=== PATIENT | male | born 1940 | race Caucasian/White ===

== ENCOUNTER 2018-04-10 04:59 | Inpatient (IN) | payer MEDICARE ==
[~2018-04-10] VITALS: Ht 180.3 cm; Wt 88.5 kg
[~2018-04-10 04:59] MED LIST: CIPR500T87 PO; EMPA10TA PEG; ENOX80SY4 SQ; LIRA0.6P SQ; METF10002 PO; METF500T27 PO; METR500T PO
[2018-04-10] MEDS ORDERED: SODIUM CHLORIDE 0.9% 1,000 ML IV ONE (05:21)
[2018-04-10] MEDS ORDERED: SODIUM CHLORIDE 0.9% 1,000ML IVBOLUS ONE (05:30)
[2018-04-10] MEDS ORDERED: SODIUM CHLORIDE FLUSH 10ML SYR IVF ONE (05:30)
[2018-04-10] MEDS ORDERED: ONDANSETRON ODT 4 MG PO ONE (05:30)
[2018-04-10] MEDS ORDERED: MORPHINE SULFATE 4 MG/ML, 1ML ONE ×3 (05:32→09:27)
[2018-04-10] MEDS ORDERED: ONDANSETRON ODT 4 MG ONE (05:32)
[2018-04-10] MEDS: MORPHINE SULFATE 4 MG/ML, 1ML IVPush PRN ×2 (05:37→07:56)
[2018-04-10 06:12] LABS: ALANINE AMINOTRANSFERASE 49 U/L (12-78); ALBUMIN 3.1 g/dL (3.4-5.0); ANION GAP 14 mmol/L (5-15); CALCIUM 8.7 mg/dL (8.5-10.1); CHLORIDE 102 mmol/L (98-107); CREATININE 1.02 mg/dL (0.7-1.3)
[2018-04-10 06:17] LABS: ALKALINE PHOSPHATASE 65 U/L (45-117); BILIRUBIN,TOTAL 0.8 mg/dL (0.2-1.0); TROPONIN I < 0.015 ng/mL (0.000-0.045)
[2018-04-10 06:24] LABS: BASOPHILS # (AUTO) 0.02 x10^3/uL (0-0.1); BASOPHILS % (AUTO) 0 % (0-1); EOSINOPHILS # (AUTO) 0.01 x10^3/uL (0-0.4); EOSINOPHILS % (AUTO) 0 % (1-7); LYMPHOCYTES # (AUTO) 0.76 x10^3/uL (1-3.4); LYMPHOCYTES % (AUTO) 8 % (22-44); MD NO; MEAN CORPUSCULAR HEMOGLOBIN 31.4 pg (27.5-34.5); MEAN CORPUSCULAR HGB CONC 33.6 g/dL (33.2-36.2); MEAN CORPUSCULAR VOLUME 93.5 fL (81-97); MEAN PLATELET VOLUME 7.1 fL (7.4-10.4); MONOCYTES # (AUTO) 0.71 x10^3/uL (0.2-0.8); MONOCYTES % (AUTO) 8 % (2-9); NEUTROPHILS # (AUTO) 7.66 x10^3/uL (1.8-6.8); NEUTROPHILS % (AUTO) 84 % (42-75); PLATELET COUNT 409 x10^3/uL (130-400); RED CELL DISTRIBUTION WIDTH 13.6 % (9.4-14.8)
[2018-04-10] MEDS ORDERED: OMNIPAQUE 350 MG/ML, 100ML BOTTLE ONE (06:59)
[2018-04-10 07:22] LABS: MICROSCOPIC AUTO
[2018-04-10 07:25] LABS: CULTURE INDICATED? NO
[2018-04-10] MEDS ORDERED: CEFOTETAN PMX 1GM/50ML 50 ML ONE (09:26)
[2018-04-10] MEDS ORDERED: SODIUM CHLORIDE FLUSH 10ML SYR IVF PRN (09:30)
[2018-04-10] MEDS ORDERED: MORPHINE SULFATE 4 MG/ML, 1ML IVPush PRN (09:30)
[2018-04-10] MEDS ORDERED: CEFOTETAN PMX 1GM/50ML 50 ML IV ONE (09:30)
[2018-04-10] MEDS ORDERED: ACETAMINOPHEN 325 MG TABLET PO PRN (10:30)
[2018-04-10] MEDS ORDERED: hydrALAzine 20 MG/ML, 1ML IVPush PRN (10:30)
[2018-04-10] MEDS ORDERED: POLYETHYLENE GLYCOL 17 GM PACKET PO PRN (10:30)
[2018-04-10] MEDS ORDERED: DEXTROSE 50%, 50ML SYRINGE IVPush PRN (10:30)
[2018-04-10] MEDS ORDERED: ONDANSETRON 2MG/ML, 2ML IVPush PRN (10:30)
[2018-04-10] MEDS ORDERED: BISACODYL 10 MG SUPP PR PRN (10:30)
[2018-04-10] MEDS ORDERED: DOCUSATE 100 MG CAPSULE PO PRN (10:30)
[2018-04-10] MEDS ORDERED: DEXTROSE 4 GM TAB.CHEW PO PRN (10:30)
[2018-04-10] MEDS ORDERED: GLUCAGON 1 MG IM PRN (10:30)
[2018-04-10] MEDS ORDERED: LABETALOL 5MG/ML, 20ML IVPush PRN (10:30)
[2018-04-10] MEDS ORDERED: HYDROcodone/APAP 10/325 MG TABLET PO ONE (11:30)
[2018-04-10] MEDS: LACTATED RINGERS 1,000 ML IV SCH (11:39)
[2018-04-10] MEDS: INSULIN LISPRO 100 UNITS/ML, PEN SQ-INSULIN SCH ×3 (12:08→21:00)
[2018-04-10 12:14] VITALS: BP 146/71
[2018-04-10] MEDS: PIPERACILLIN/TAZO/PMX 4.5GM 100 ML IV SCH ×2 (12:50→18:38)
[2018-04-10] MEDS: morphine SULFATE 10 MG/ML, 1ML IVPush PRN ×3 (12:50→20:47)
[2018-04-10 14:23] VITALS: BP 141/84
[2018-04-10 14:31] VITALS: BP 116/70
[2018-04-10] MEDS: SODIUM CHLORIDE FLUSH 10ML SYR IVF SCH (20:30)
[2018-04-10 21:01] VITALS: BP 151/78
[2018-04-11] MEDS: PIPERACILLIN/TAZO/PMX 4.5GM 100 ML IV SCH ×5 (00:01→23:44)
[2018-04-11] MEDS: morphine SULFATE 10 MG/ML, 1ML IVPush PRN ×8 (00:14→22:20)
[2018-04-11 01:18] VITALS: BP 134/77
[2018-04-11 05:20] LABS: BASOPHILS # (AUTO) 0.11 x10^3/uL (0-0.1); BASOPHILS % (AUTO) 1 % (0-1); EOSINOPHILS # (AUTO) 0.03 x10^3/uL (0-0.4); EOSINOPHILS % (AUTO) 0 % (1-7); LYMPHOCYTES # (AUTO) 0.68 x10^3/uL (1-3.4); LYMPHOCYTES % (AUTO) 6 % (22-44); MD NO; MEAN CORPUSCULAR HEMOGLOBIN 31.2 pg (27.5-34.5); MEAN CORPUSCULAR HGB CONC 33.5 g/dL (33.2-36.2); MEAN PLATELET VOLUME 6.6 fL (7.4-10.4); MONOCYTES # (AUTO) 1.08 x10^3/uL (0.2-0.8); MONOCYTES % (AUTO) 10 % (2-9); NEUTROPHILS # (AUTO) 9.44 x10^3/uL (1.8-6.8); NEUTROPHILS % (AUTO) 83 % (42-75); PLATELET COUNT 367 x10^3/uL (130-400); RED BLOOD COUNT 3.84 x10^6/uL (4.38-5.82); RED CELL DISTRIBUTION WIDTH 13.3 % (9.4-14.8)
[2018-04-11 05:27] LABS: CHLORIDE 104 mmol/L (98-107)
[2018-04-11 05:32] LABS: ALANINE AMINOTRANSFERASE 34 U/L (12-78); ALBUMIN 2.4 g/dL (3.4-5.0); ALKALINE PHOSPHATASE 48 U/L (45-117); ANION GAP 9 mmol/L (5-15); BILIRUBIN,TOTAL 0.6 mg/dL (0.2-1.0); CALCIUM 8.5 mg/dL (8.5-10.1); CREATININE 0.83 mg/dL (0.7-1.3); TOTAL PROTEIN 6.6 g/dL (6.4-8.2)
[2018-04-11 08:35] VITALS: BP 136/75
[2018-04-11] MEDS: SODIUM CHLORIDE FLUSH 10ML SYR IVF SCH ×2 (09:00→22:41)
[2018-04-11] MEDS: INSULIN LISPRO 100 UNITS/ML, PEN SQ-INSULIN SCH ×3 (09:39→22:42)
[2018-04-11] MEDS ORDERED: HEPARIN 25,000 UNITS/500ML PMX 500 ML IV PRN (12:30)
[2018-04-11] MEDS ORDERED: HEPARIN 5,000 UNITS/ML, 1ML IV ONE (12:30)
[2018-04-11 14:30] VITALS: BP 120/65
[2018-04-11] MEDS: LACTATED RINGERS 1,000 ML IV SCH ×3 (14:48→22:41)
[2018-04-11 20:00] VITALS: BP 127/75
[2018-04-11] MEDS: HEPARIN 5,000 UNITS/ML, 1ML IV PRN (23:22)
[2018-04-12] MEDS: morphine SULFATE 10 MG/ML, 1ML IVPush PRN (03:03)
[2018-04-12] MEDS: INSULIN LISPRO 100 UNITS/ML, PEN SQ-INSULIN SCH ×4 (03:11→21:34)
[2018-04-12 03:22] VITALS: BP 143/71
[2018-04-12 06:02] LABS: BASOPHILS # (AUTO) 0.07 x10^3/uL (0-0.1); BASOPHILS % (AUTO) 1 % (0-1); EOSINOPHILS # (AUTO) 0.06 x10^3/uL (0-0.4); EOSINOPHILS % (AUTO) 1 % (1-7); LYMPHOCYTES # (AUTO) 0.83 x10^3/uL (1-3.4); LYMPHOCYTES % (AUTO) 7 % (22-44); MD NO; MEAN CORPUSCULAR HEMOGLOBIN 30.9 pg (27.5-34.5); MEAN CORPUSCULAR HGB CONC 33.2 g/dL (33.2-36.2); MEAN CORPUSCULAR VOLUME 93.3 fL (81-97); MEAN PLATELET VOLUME 6.5 fL (7.4-10.4); MONOCYTES # (AUTO) 1.13 x10^3/uL (0.2-0.8); MONOCYTES % (AUTO) 9 % (2-9); NEUTROPHILS # (AUTO) 10.04 x10^3/uL (1.8-6.8); NEUTROPHILS % (AUTO) 83 % (42-75); PLATELET COUNT 422 x10^3/uL (130-400); RED BLOOD COUNT 3.92 x10^6/uL (4.38-5.82); RED CELL DISTRIBUTION WIDTH 13.8 % (9.4-14.8)
[2018-04-12] MEDS: PIPERACILLIN/TAZO/PMX 4.5GM 100 ML IV SCH ×4 (06:05→23:32)
[2018-04-12 06:14] LABS: ALANINE AMINOTRANSFERASE 29 U/L (12-78); ALBUMIN 2.2 g/dL (3.4-5.0); ANION GAP 8 mmol/L (5-15); CALCIUM 8.8 mg/dL (8.5-10.1); CHLORIDE 102 mmol/L (98-107); CREATININE 0.88 mg/dL (0.7-1.3)
[2018-04-12 06:16] LABS: ALKALINE PHOSPHATASE 47 U/L (45-117); BILIRUBIN,TOTAL 0.5 mg/dL (0.2-1.0); TOTAL PROTEIN 6.9 g/dL (6.4-8.2)
[2018-04-12] MEDS ORDERED: EPINEPHRINE 1 MG/ML, 1ML ONE (06:58)
[2018-04-12] MEDS ORDERED: BUPIVACAINE/PF 0.25% ONE (06:58)
[2018-04-12] MEDS: LACTATED RINGERS 1,000 ML IV SCH ×4 (07:00→23:33)
[2018-04-12] MEDS ORDERED: FENTANYL PF 100 MCG/2ML ONE (07:13)
[2018-04-12] MEDS ORDERED: PROPOFOL 10 MG/ML, 20ML ONE (07:27)
[2018-04-12] MEDS ORDERED: DEXAMETHASONE 4 MG/ML, 1ML ONE (07:27)
[2018-04-12] MEDS ORDERED: SUCCINYLCHOLINE 20 MG/ML, 10ML ONE (07:27)
[2018-04-12] MEDS ORDERED: ONDANSETRON 2MG/ML, 2ML ONE (07:27)
[2018-04-12] MEDS ORDERED: BUPIVACAINE/PF-EPI 0.25% 1:200K IM ONE (07:49)
[2018-04-12] MEDS ORDERED: ALBUTEROL SULFATE 2.5 MG/3 ML NPPB PRN (08:30)
[2018-04-12] MEDS ORDERED: KETOROLAC 30 MG/1 ML IV PRN (08:30)
[2018-04-12] MEDS ORDERED: LABETALOL 5MG/ML, 20ML IV PRN (08:30)
[2018-04-12] MEDS ORDERED: OXYcodone 5 MG/5 ML ORAL.SOL UDC PO PRN (08:30)
[2018-04-12] MEDS ORDERED: hydrALAzine 20 MG/ML, 1ML IV PRN (08:30)
[2018-04-12] MEDS ORDERED: HYDROmorphone 1 MG/ML, 1ML IV PRN (08:30)
[2018-04-12] MEDS ORDERED: ACETAMINOPHEN 325 MG TABLET PO PRN (08:30)
[2018-04-12] MEDS ORDERED: OXYcodone 5 MG/5 ML ORAL.SOL UDC ONE ×2 (08:30)
[2018-04-12] MEDS ORDERED: FENTANYL PF 100 MCG/2ML IV PRN (08:30)
[2018-04-12] MEDS ORDERED: PROMETHAZINE 25 MG/ML, 1ML IV PRN (08:30)
[2018-04-12] MEDS: SODIUM CHLORIDE FLUSH 10ML SYR IVF SCH ×2 (09:40→21:22)
[2018-04-12] MEDS ORDERED: ONDANSETRON 2MG/ML, 2ML IVPush PRN (10:00)
[2018-04-12] MEDS: POTASSIUM CHLORIDE 20 MEQ in D5%-0.45% NACL 1,000 ML IV SCH ×2 (11:13→20:58)
[2018-04-12] MEDS: HEPARIN 25,000 UNITS/500ML PMX 500 ML IV PRN ×2 (11:14→20:37)
[2018-04-12 12:55] VITALS: BP 104/62
[2018-04-12 18:00] VITALS: BP 124/71
[2018-04-12] MEDS: HEPARIN 5,000 UNITS/ML, 1ML IV PRN (18:44)
[2018-04-12 19:03] VITALS: BP 115/73
[2018-04-12] MEDS: morphine SULFATE 10 MG/ML, 1ML IV PRN (21:34)
[2018-04-13] MEDS: morphine SULFATE 10 MG/ML, 1ML IV PRN ×2 (01:00→05:27)
[2018-04-13 01:09] VITALS: BP 121/67
[2018-04-13] MEDS: HEPARIN 5,000 UNITS/ML, 1ML IV PRN ×3 (01:10→21:01)
[2018-04-13] MEDS: INSULIN LISPRO 100 UNITS/ML, PEN SQ-INSULIN SCH ×5 (03:32→21:15)
[2018-04-13] MEDS: PIPERACILLIN/TAZO/PMX 4.5GM 100 ML IV SCH ×4 (05:27→23:57)
[2018-04-13] MEDS: POTASSIUM CHLORIDE 20 MEQ in D5%-0.45% NACL 1,000 ML IV SCH (05:27)
[2018-04-13 07:05] LABS: BASOPHILS # (AUTO) 0.12 x10^3/uL (0-0.1); BASOPHILS % (AUTO) 1 % (0-1); EOSINOPHILS # (AUTO) 0.03 x10^3/uL (0-0.4); EOSINOPHILS % (AUTO) 0 % (1-7); LYMPHOCYTES # (AUTO) 0.82 x10^3/uL (1-3.4); LYMPHOCYTES % (AUTO) 7 % (22-44); MD NO; MEAN CORPUSCULAR HEMOGLOBIN 30.3 pg (27.5-34.5); MEAN CORPUSCULAR HGB CONC 32.5 g/dL (33.2-36.2); MEAN CORPUSCULAR VOLUME 93.3 fL (81-97); MEAN PLATELET VOLUME 6.4 fL (7.4-10.4); MONOCYTES # (AUTO) 0.99 x10^3/uL (0.2-0.8); MONOCYTES % (AUTO) 8 % (2-9); NEUTROPHILS # (AUTO) 10.54 x10^3/uL (1.8-6.8); NEUTROPHILS % (AUTO) 84 % (42-75); PLATELET COUNT 444 x10^3/uL (130-400); RED BLOOD COUNT 3.69 x10^6/uL (4.38-5.82); RED CELL DISTRIBUTION WIDTH 13.5 % (9.4-14.8)
[2018-04-13 07:17] LABS: ALANINE AMINOTRANSFERASE 26 U/L (12-78); ANION GAP 6 mmol/L (5-15); CALCIUM 8.3 mg/dL (8.5-10.1); CHLORIDE 102 mmol/L (98-107); CREATININE 0.94 mg/dL (0.7-1.3)
[2018-04-13 07:19] LABS: ALKALINE PHOSPHATASE 48 U/L (45-117); BILIRUBIN,TOTAL 0.4 mg/dL (0.2-1.0); TOTAL PROTEIN 6.5 g/dL (6.4-8.2)
[2018-04-13 07:35] VITALS: BP 105/62
[2018-04-13] MEDS ORDERED: POTASSIUM CHLORIDE 20 MEQ TAB.ER.PRT PO ONE (09:30)
[2018-04-13] MEDS: NEUTRA PHOS K 250 MG TABLET PO SCH ×3 (11:05→21:05)
[2018-04-13] MEDS: SODIUM CHLORIDE FLUSH 10ML SYR IVF SCH ×2 (11:05→21:06)
[2018-04-13 14:48] VITALS: BP 114/68
[2018-04-13] MEDS: HEPARIN 25,000 UNITS/500ML PMX 500 ML IV PRN (15:49)
[2018-04-13] MEDS: HYDROcodone/APAP 5/325 TABLET PO PRN (18:31)
[2018-04-13 19:15] VITALS: BP 123/71
[2018-04-14 01:52] VITALS: BP 140/75
[2018-04-14 03:07] LABS: BASOPHILS # (AUTO) 0.05 x10^3/uL (0-0.1); BASOPHILS % (AUTO) 1 % (0-1); EOSINOPHILS # (AUTO) 0.04 x10^3/uL (0-0.4); EOSINOPHILS % (AUTO) 0 % (1-7); LYMPHOCYTES # (AUTO) 0.87 x10^3/uL (1-3.4); LYMPHOCYTES % (AUTO) 8 % (22-44); MD NO; MEAN CORPUSCULAR HEMOGLOBIN 31.1 pg (27.5-34.5); MEAN CORPUSCULAR HGB CONC 33.8 g/dL (33.2-36.2); MEAN CORPUSCULAR VOLUME 92.1 fL (81-97); MEAN PLATELET VOLUME 6.5 fL (7.4-10.4); MONOCYTES # (AUTO) 1.13 x10^3/uL (0.2-0.8); MONOCYTES % (AUTO) 10 % (2-9); NEUTROPHILS # (AUTO) 9.49 x10^3/uL (1.8-6.8); NEUTROPHILS % (AUTO) 82 % (42-75); PLATELET COUNT 440 x10^3/uL (130-400); RED BLOOD COUNT 3.69 x10^6/uL (4.38-5.82); RED CELL DISTRIBUTION WIDTH 13.5 % (9.4-14.8)
[2018-04-14 03:20] LABS: ANION GAP 10 mmol/L (5-15); CALCIUM 8.1 mg/dL (8.5-10.1); CHLORIDE 100 mmol/L (98-107)
[2018-04-14] MEDS ORDERED: MORPHINE SULFATE 4 MG/ML, 1ML ONE (03:39)
[2018-04-14] MEDS: morphine SULFATE 10 MG/ML, 1ML IV PRN (03:41)
[2018-04-14 03:43] LABS: BILIRUBIN,TOTAL 0.5 mg/dL (0.2-1.0); CREATININE 1.02 mg/dL (0.7-1.3)
[2018-04-14 03:44] LABS: ALANINE AMINOTRANSFERASE 33 U/L (12-78); ALKALINE PHOSPHATASE 53 U/L (45-117); TOTAL PROTEIN 6.5 g/dL (6.4-8.2)
[2018-04-14] MEDS: PIPERACILLIN/TAZO/PMX 4.5GM 100 ML IV SCH ×4 (05:49→19:48)
[2018-04-14] MEDS ORDERED: BISACODYL 5 MG EC TABLET PO PRN (06:30)
[2018-04-14] MEDS: INSULIN LISPRO 100 UNITS/ML, PEN SQ-INSULIN SCH ×4 (07:33→19:48)
[2018-04-14] MEDS: NEUTRA PHOS K 250 MG TABLET PO SCH ×3 (07:34→19:48)
[2018-04-14] MEDS: SODIUM CHLORIDE FLUSH 10ML SYR IVF SCH ×2 (07:34→19:49)
[2018-04-14] MEDS: HEPARIN 25,000 UNITS/500ML PMX 500 ML IV PRN (07:38)
[2018-04-14 07:53] VITALS: BP 146/77
[2018-04-14] MEDS ORDERED: SODIUM PHOSPHATE 4 MEQ/ML IV SCH (08:00)
[2018-04-14] MEDS: HYDROcodone/APAP 5/325 TABLET PO PRN ×2 (08:11→19:48)
[2018-04-14] MEDS: ONDANSETRON ODT 4 MG PO PRN (08:19)
[2018-04-14] MEDS ORDERED: SODIUM PHOSPHATE 30 MMOL in SODIUM CHLORIDE 0.9% 500 ML IV ONE (09:00)
[2018-04-14] MEDS ORDERED: OMNIPAQUE 350 MG/ML, 100ML BOTTLE ONE (10:19)
[2018-04-14] MEDS: HEPARIN 5,000 UNITS/ML, 1ML IV PRN (10:58)
[2018-04-14] MEDS: ENOXAPARIN 80 MG/0.8 ML SQ SCH ×2 (11:30→23:20)
[2018-04-14 13:43] VITALS: BP 104/63
[2018-04-14 19:31] VITALS: BP 118/62
[2018-04-15] MEDS: HYDROcodone/APAP 5/325 TABLET PO PRN ×3 (01:34→19:59)
[2018-04-15] MEDS: PIPERACILLIN/TAZO/PMX 4.5GM 100 ML IV SCH ×4 (01:34→19:59)
[2018-04-15 01:41] VITALS: BP 131/67
[2018-04-15 05:00] LABS: BASOPHILS # (AUTO) 0.03 x10^3/uL (0-0.1); BASOPHILS % (AUTO) 0 % (0-1); EOSINOPHILS # (AUTO) 0.09 x10^3/uL (0-0.4); EOSINOPHILS % (AUTO) 1 % (1-7); LYMPHOCYTES % (AUTO) 8 % (22-44); MD NO; MEAN CORPUSCULAR HEMOGLOBIN 30.7 pg (27.5-34.5); MEAN CORPUSCULAR HGB CONC 33.3 g/dL (33.2-36.2); MEAN CORPUSCULAR VOLUME 92.1 fL (81-97); MEAN PLATELET VOLUME 6.6 fL (7.4-10.4); MONOCYTES # (AUTO) 1.09 x10^3/uL (0.2-0.8); MONOCYTES % (AUTO) 12 % (2-9); NEUTROPHILS # (AUTO) 7.39 x10^3/uL (1.8-6.8); NEUTROPHILS % (AUTO) 80 % (42-75); PLATELET COUNT 380 x10^3/uL (130-400); RED BLOOD COUNT 3.35 x10^6/uL (4.38-5.82); RED CELL DISTRIBUTION WIDTH 13.6 % (9.4-14.8)
[2018-04-15 05:10] LABS: CHLORIDE 102 mmol/L (98-107)
[2018-04-15 05:20] LABS: ALANINE AMINOTRANSFERASE 28 U/L (12-78); ALBUMIN 1.7 g/dL (3.4-5.0); ALKALINE PHOSPHATASE 50 U/L (45-117); ANION GAP 7 mmol/L (5-15); BILIRUBIN,TOTAL 0.5 mg/dL (0.2-1.0); CALCIUM 7.5 mg/dL (8.5-10.1); CREATININE 0.87 mg/dL (0.7-1.3); TOTAL PROTEIN 5.9 g/dL (6.4-8.2)
[2018-04-15 08:00] VITALS: BP 136/67
[2018-04-15] MEDS: ONDANSETRON ODT 4 MG PO PRN (08:12)
[2018-04-15] MEDS: morphine SULFATE 10 MG/ML, 1ML IV PRN (08:12)
[2018-04-15] MEDS: NEUTRA PHOS K 250 MG TABLET PO SCH ×3 (08:12→19:59)
[2018-04-15] MEDS: INSULIN LISPRO 100 UNITS/ML, PEN SQ-INSULIN SCH ×4 (08:13→19:59)
[2018-04-15] MEDS: SODIUM CHLORIDE FLUSH 10ML SYR IVF SCH ×2 (08:13→19:59)
[2018-04-15] MEDS: ENOXAPARIN 80 MG/0.8 ML SQ SCH ×2 (11:21→23:12)
[2018-04-15] MEDS ORDERED: POTASSIUM CHLORIDE 20 MEQ TAB.ER.PRT PO ONE ×2 (12:00→15:00)
[2018-04-15 12:55] VITALS: BP 148/83
[2018-04-15 19:59] VITALS: BP 123/67
[2018-04-16 01:49] VITALS: BP 140/73
[2018-04-16] MEDS: PIPERACILLIN/TAZO/PMX 4.5GM 100 ML IV SCH ×3 (02:01→14:16)
[2018-04-16] MEDS: HYDROcodone/APAP 5/325 TABLET PO PRN ×2 (02:01→14:19)
[2018-04-16 04:51] LABS: BASOPHILS # (AUTO) 0.04 x10^3/uL (0-0.1); BASOPHILS % (AUTO) 0 % (0-1); EOSINOPHILS # (AUTO) 0.09 x10^3/uL (0-0.4); EOSINOPHILS % (AUTO) 1 % (1-7); LYMPHOCYTES # (AUTO) 0.69 x10^3/uL (1-3.4); LYMPHOCYTES % (AUTO) 7 % (22-44); MD NO; MEAN CORPUSCULAR HEMOGLOBIN 30.8 pg (27.5-34.5); MEAN CORPUSCULAR HGB CONC 33.7 g/dL (33.2-36.2); MEAN CORPUSCULAR VOLUME 91.3 fL (81-97); MEAN PLATELET VOLUME 6.7 fL (7.4-10.4); MONOCYTES # (AUTO) 1.05 x10^3/uL (0.2-0.8); MONOCYTES % (AUTO) 10 % (2-9); NEUTROPHILS % (AUTO) 81 % (42-75); PLATELET COUNT 403 x10^3/uL (130-400); RED BLOOD COUNT 3.47 x10^6/uL (4.38-5.82); RED CELL DISTRIBUTION WIDTH 13.8 % (9.4-14.8)
[2018-04-16 05:02] LABS: ALBUMIN 1.9 g/dL (3.4-5.0); ANION GAP 4 mmol/L (5-15); CALCIUM 7.6 mg/dL (8.5-10.1); CHLORIDE 103 mmol/L (98-107)
[2018-04-16 05:05] LABS: ALANINE AMINOTRANSFERASE 29 U/L (12-78); ALKALINE PHOSPHATASE 55 U/L (45-117); BILIRUBIN,TOTAL 0.6 mg/dL (0.2-1.0); CREATININE 0.88 mg/dL (0.7-1.3); TOTAL PROTEIN 6.3 g/dL (6.4-8.2)
[2018-04-16] MEDS ORDERED: SODIUM PHOSPHATE 4 MEQ/ML IV SCH (07:00)
[2018-04-16] MEDS ORDERED: SODIUM PHOSPHATE 30 MMOL in SODIUM CHLORIDE 0.9% 500 ML IV ONE (07:00)
[2018-04-16] MEDS: INSULIN LISPRO 100 UNITS/ML, PEN SQ-INSULIN SCH ×3 (07:51→16:00)
[2018-04-16] MEDS: SODIUM CHLORIDE FLUSH 10ML SYR IVF SCH (07:56)
[2018-04-16 08:04] VITALS: BP 115/59
[2018-04-16] MEDS: NEUTRA PHOS K 250 MG TABLET PO SCH ×2 (09:36→16:00)
[2018-04-16] MEDS: ENOXAPARIN 80 MG/0.8 ML SQ SCH (11:06)
[2018-04-16 12:40] VITALS: BP 125/71
[2018-04-16] MEDS ORDERED: CEFD300C37 PO (12:59)
[2018-04-16] MEDS ORDERED: METR500T PO (12:59)
[2018-04-16] MEDS ORDERED: ONDA4VIA4 IVPush (13:00)
[2018-04-16] MEDS ORDERED: HYDR-3240 PO (13:02)
[2018-04-16] MEDS ORDERED: ONDA4TAB12 PO (13:45)
== END 2018-04-16 17:30 | disposition home or self-care (01) | DRG 853 ==
LOC: ED 05:18 → EDIP 09:26 → 4NOR 10:38 → 3NW 04-12 17:45
PROVIDERS: ADMIT Hospitalist; ATTEND Hospitalist
PROC: 0DTJ4ZZ Resection of Appendix, Percutaneous Endoscopic Approach (ICD-10-PCS; principal; 2018-04-12 07:30)
DX: A41.9 Sepsis, unspecified organism (principal); I26.99 Other pulmonary embolism without acute cor pulmonale; E43 Unspecified severe protein-calorie malnutrition; J96.01 Acute respiratory failure with hypoxia; C64.9 Malignant neoplasm of unspecified kidney, except renal pelvis; K35.80 Unspecified acute appendicitis; C78.01 Secondary malignant neoplasm of right lung; C78.02 Secondary malignant neoplasm of left lung; C78.6 Secondary malignant neoplasm of retroperitoneum and peritoneum; Z66 Do not resuscitate; D64.9 Anemia, unspecified; E11.9 Type 2 diabetes mellitus without complications; J44.9 Chronic obstructive pulmonary disease, unspecified; Z80.1 Family history of malignant neoplasm of trachea, bronchus and lung; Z80.8 Family history of malignant neoplasm of other organs or systems; Z68.27 Body mass index [BMI] 27.0-27.9, adult
CPT/HCPCS: 36415; 71045; 74177; 78306; 80053; 81001; 82962; 83605; 83690; 83735; 84100; 84484; 85025; 85520; 87040; 87086; 88304; 93005; J0171; J1100; J1644; J1650; J2405; J2543; J2704; J3010; J3480; J3490; Q0162; Q9967; A9503; C9898; J0330; J1815; J2270; J7030; J7040; J7120; S0074

== ENCOUNTER → 2018-07-29 | Outpatient (CLI) | payer MEDICARE ==
[~2018-07-29] MED LIST changes: +CEFD300C37 PO; +HYDR-3240 PO; -METF10002 PO; +METF10007 PO; +OMNIPAQUE 350 MG/ML, 100ML BOTTLE ONE; +ONDA4TAB12 PO; +ONDA4VIA8 IVPush
== END | disposition home or self-care (01) ==
LOC: RAD 15:22
PROVIDERS: ATTEND Internal Medicine Hematology & Oncology
DX: N28.89 Other specified disorders of kidney and ureter (principal); R59.0 Localized enlarged lymph nodes; K86.89 Other specified diseases of pancreas; D73.89 Other diseases of spleen; R91.8 Other nonspecific abnormal finding of lung field; I25.10 Atherosclerotic heart disease of native coronary artery without angina pectoris; C64.9 Malignant neoplasm of unspecified kidney, except renal pelvis; E11.9 Type 2 diabetes mellitus without complications
CPT/HCPCS: 71260; 74177; Q9967

== ENCOUNTER → 2019-01-25 | Outpatient (CLI) | payer OTHER | END | disposition home or self-care (01) | LOC: CFH 10:09 | PROVIDERS: ATTEND Internal Medicine Hematology & Oncology | DX: C64.9 Malignant neoplasm of unspecified kidney, except renal pelvis (principal); I82.220 Acute embolism and thrombosis of inferior vena cava; N28.89 Other specified disorders of kidney and ureter; R59.1 Generalized enlarged lymph nodes; R93.41 Abnormal radiologic findings on diagnostic imaging of renal pelvis, ureter, or bladder; R91.8 Other nonspecific abnormal finding of lung field; L92.8 Other granulomatous disorders of the skin and subcutaneous tissue; M51.36 Other intervertebral disc degeneration, lumbar region | CPT/HCPCS: 71260; 74177; Q9967 ==

== ENCOUNTER 2019-05-12 13:28 | Outpatient (CLI) | payer OTHER | END 2019-05-12 23:59 | disposition home or self-care (01) | LOC: CFH 13:28 | PROVIDERS: ATTEND Internal Medicine Hematology & Oncology | DX: C64.9 Malignant neoplasm of unspecified kidney, except renal pelvis (principal); I08.3 Combined rheumatic disorders of mitral, aortic and tricuspid valves; K86.89 Other specified diseases of pancreas; N28.1 Cyst of kidney, acquired; M51.36 Other intervertebral disc degeneration, lumbar region; E11.9 Type 2 diabetes mellitus without complications; Z85.528 Personal history of other malignant neoplasm of kidney | CPT/HCPCS: 71260; 74177; 82565; 93306; Q9967 ==